=== PATIENT | female | born 1950 | race Caucasian/White ===

== ENCOUNTER 2017-07-28 21:24 | Emergency (ER) | payer MEDICARE, BC ==
--- NOTE | 2017-07-28 21:53 | EDM.PDOC ---
ED HPI GENERAL MEDICAL PROBLEM - General Chief Complaint: [employer] Problem Stated Complaint: vaginal bleeding Time Seen by Provider: 07/28/17 21:27 Source of Information: Reports: Patient, Family, Old Records, RN, RN Notes Reviewed History Limitations: Reports: No Limitations - History of Present Illness INITIAL COMMENTS - FREE TEXT/NARRATIVE: Patient presents to the ED at [facility] for vaginal bleeding. The patient had polyps removed from her cervix today by Dr. Milka Arthur during a clinic visit around 1pm this afternoon. Patient states the procedure when fine. She was able to go out of town this afternoon to visit a relative. Once back home, she noticed vaginal bleeding with clots around 16:30. She states the clots were in her underwear and in the toilet. She guess's about 1-2 cups of clots were expelled. She used matty pads until the bleeding became heavier around 9pm this evening. Patient denies any symptoms related to her presenting problem. Onset: Today, Sudden - Related Data Allergies Allergy/AdvReac Type Severity Reaction Status Date / Time atorvastatin [From Lipitor] Allergy Other Verified 07/28/17 21:29 Home Meds: Home Meds Aspirin [Halfprin] 81 mg PO DAILY 07/28/17 [History] Imipramine HCl [Imipramine] 50 mg PO DAILY 07/28/17 [History] Levothyroxine 25 mcg PO DAILY 07/28/17 [History] Simvastatin [Zocor] 20 mg PO DAILY 07/28/17 [History] ED ROS GENERAL - Review of Systems Review Of Systems: See Below Constitutional: Denies: Fever, Chills, Weakness Respiratory: Denies: Shortness of Breath, Cough Cardiovascular: Denies: Chest Pain, Palpitations GI/Abdominal: Denies: Abdominal Pain, Nausea, Vomiting : Reports: Discharge Skin: Reports: No Symptoms Neurological: Denies: Dizziness, Headache, Numbness, Paresthesia, Tingling, Weakness ED EXAM, RENAL/ - Physical Exam Exam: See Below Exam Limited By: No Limitations General Appearance: Alert, No Apparent Distress Respiratory/Chest: No Respiratory Distress, Lungs Clear, Normal Breath Sounds Cardiovascular: Normal Peripheral Pulses, Regular Rate, Rhythm GI/Abdominal: Normal Bowel Sounds, Soft, Non-Tender (Female) Exam: Vaginal Bleeding (diaz blood with clots) Neurological: Alert, Oriented Skin Exam: Warm, Dry, Intact, Normal Color ED PROCEDURES - Additional/Other Procedure(s) Procedure(s) (Free Text): Vaginal speculum exam completed. Several clots were removed prior to visualization of vaginal vault and cervix. All blood/material was removed and cervix visualized. Unable to located or see where active bleeding was coming from. No active bleed from cervix itself. Cervix tender. Nimo and 4x4s used to removed about 3/4 cup of diaz blood from vaginal vault. Blood repooled and unable to locate source of bleeding on visual exam. Course - Vital Signs Last Recorded V/S: Last Vital Signs Temp 36.5 C 07/28/17 21:25 Pulse 95 07/28/17 21:25 Resp 18 07/28/17 21:25 BP 154/77 H 07/28/17 21:25 Pulse Ox 100 07/28/17 21:25 - Orders/Labs/Meds Labs: Laboratory Tests 07/28/17 Range/Units 21:46 WBC 10.4 H (4.0-10.0) x10^3/uL RBC 5.10 (4.00-5.50) x10^6/uL Hgb 14.4 (12.0-16.0) g/dL Hct 43.7 (33.0-47.0) % MCV 85.7 (78.0-93.0) fL MCH 28.2 (26.0-32.0) pg MCHC 33.0 (32.0-36.0) g/dL RDW Coeff of Herson 13.8 (10.0-15.0) % Plt Count 302 (130-400) x10^3/uL Neut % (Auto) 58.2 (50.0-80.0) % Lymph % (Auto) 33.3 (25.0-50.0) % Dare % (Auto) 7.8 (2.0-11.0) % Eos % (Auto) 0.5 (0.0-4.0) % Baso % (Auto) 0.2 (0.2-1.2) % Departure - Departure Time of Disposition: 22:22 Disposition: DC/Tfer to Acute Hospital 02 Condition: Good Clinical Impression: Vaginal bleeding - Discharge Information Forms: Interfacility Transfer [facility] ED Communication - ED Communication Date/Time Date: 07/28/17 Time Called: 21:45 - Discussed Case With (1) Discussed Case With (1): Outpatient Provider Person/s Notified (1): Vandana Pizano - Conversation Summary Outpatient Provider Agreed to Follow-up on this Patient: Yes Summary Comment: Case discussed with Dr. Pizano, [employer]. Discussed speculum exam and findings. Recommend patient be seen in the ED at [facility]. Patient and agreeable to plan of care. Case also discussed with Dr. Dhillon, ED provider. - Problem List Review Problem List Initiated/Reviewed/Updated: Yes - Assessment/Plan Assessment:: Vaginal bleeding Plan: Case discussed with Dr. Pizano. Patient will be sent to [facility] ER for further assessment and treatment. Patient sent via POV. Patient and agreeable to treatment plan and wish to proceed.
== END 2017-07-28 22:32 | disposition short-term general hospital (02) ==
LOC: VM.ED 21:24
DX: N93.9 Abnormal uterine and vaginal bleeding, unspecified (principal); Z88.8 Allergy status to other drugs, medicaments and biological substances; Z79.899 Other long term (current) drug therapy; Z79.82 Long term (current) use of aspirin
CPT/HCPCS: 36415; 85025; 99285